=== PATIENT | female | born 1935 | race Caucasian/White ===

== ENCOUNTER 2016-11-15 11:33 | Emergency (ER) | payer OTHER ==
[~2016-11-15] VITALS: Ht 149.9 cm; Wt 63.1 kg
[~2016-11-15 11:33] MED LIST: AMLO5TAB2 PO; AZIT250T PO; BUDE10.22 INH; CARV6.252 PO; DULO30CA2 PO; DULO60CA7 PO; FERR324T18 PO; FLUT16SP NAS; FURO-93 PO; LEVO750T26 PO; LISI-167 PO; LISI40TA PO; METO25TA35 PO; OLOP5DRO EACHEYE; POTA10TA11 PO; POTA10TA5 PO; PRED20TA PO; TIOT18CA INH; TRAM50TA2 PO; TROL85CR TP
[2016-11-15] MEDS ORDERED: MORPHINE SULFATE 4 MG/ML, 1ML ONE (12:56)
[2016-11-15] MEDS ORDERED: ONDANSETRON 2MG/ML, 2ML ONE (12:56)
[2016-11-15] MEDS ORDERED: MORPHINE SULFATE 4 MG/ML, 1ML IVPush PRN (13:00)
[2016-11-15] MEDS ORDERED: SODIUM CHLORIDE FLUSH 10ML SYR IVF ONE (13:00)
[2016-11-15] MEDS ORDERED: ONDANSETRON 2MG/ML, 2ML IVPush ONE (13:00)
[2016-11-15 13:04] LABS: HEMOGLOBIN 11.4 g/dL (11.7-16.4)
[2016-11-15 13:09] LABS: ASPARTATE AMINO TRANSFERASE 13 U/L (15-37); BLOOD UREA NITROGEN 18 mg/dL (7-18)
[2016-11-15 14:26] VITALS: BP 121/63
== END 2016-11-15 14:42 | disposition home or self-care (01) ==
LOC: ED 14:30
DX: M13.131 Monoarthritis, not elsewhere classified, right wrist (principal); L03.113 Cellulitis of right upper limb; J44.9 Chronic obstructive pulmonary disease, unspecified; I11.0 Hypertensive heart disease with heart failure; I50.9 Heart failure, unspecified; Z86.73 Personal history of transient ischemic attack (TIA), and cerebral infarction without residual deficits; I25.2 Old myocardial infarction
CPT/HCPCS: 36415; 73110; 80053; 83690; 84550; 85025; 85610; 85730; 96374; 96375; 99285; J2405

== ENCOUNTER 2017-01-25 13:57 | Inpatient (IN) | payer OTHER ==
[~2017-01-25] VITALS: Ht 149.9 cm; Wt 63.2 kg
[2017-01-25] MEDS ORDERED: SODIUM CHLORIDE FLUSH 10ML SYR IVF ONE (14:30)
[2017-01-25] MEDS ORDERED: LABETALOL 5MG/ML, 20ML IVPush ONE (14:30)
[2017-01-25] MEDS ORDERED: MORPHINE SULFATE 4 MG/ML, 1ML IVPush PRN (14:30)
[2017-01-25] MEDS ORDERED: NITROGLYCERIN OINT 2%, 1GM TP ONE ×2 (14:30→14:52)
[2017-01-25 14:51] LABS: ASPARTATE AMINO TRANSFERASE 24 U/L (15-37); BLOOD UREA NITROGEN 29 mg/dL (7-18)
[2017-01-25] MEDS ORDERED: MORPHINE SULFATE 4 MG/ML, 1ML ONE (14:52)
[2017-01-25] MEDS ORDERED: LABETALOL 5MG/ML, 20ML ONE (14:53)
[2017-01-25 14:58] LABS: IS PT STATUS REG ER OR PRE ER? YES
[2017-01-25] MEDS ORDERED: METO25TA91 PO (16:27)
[2017-01-25] MEDS ORDERED: AMLO5TAB2 PO (16:27)
[2017-01-25] MEDS ORDERED: COLC0.6T37 PO (16:27)
[2017-01-25] MEDS ORDERED: LABETALOL 5MG/ML 40ML VIAL IVPush PRN (17:30)
[2017-01-25] MEDS ORDERED: ENALAPRILAT 1.25 MG/ML, 2ML IVPush PRN (17:30)
[2017-01-25] MEDS ORDERED: ONDANSETRON ODT 4 MG PO PRN (17:30)
[2017-01-25] MEDS ORDERED: HYDROcodone/APAP 5/325 TABLET PO PRN (17:30)
[2017-01-25] MEDS ORDERED: hydrALAzine 20 MG/ML, 1ML IVPush PRN (17:30)
[2017-01-25] MEDS ORDERED: DOCUSATE 100 MG CAPSULE PO PRN (17:30)
[2017-01-25] MEDS ORDERED: NITROGLYCERIN 0.4 MG BOTTLE (25 TABS) SL PRN (17:30)
[2017-01-25 17:46] VITALS: BP 181/109
[2017-01-25] MEDS ORDERED: COLCHICINE 0.6 MG TABLET PO PRN (18:00)
[2017-01-25 18:32] VITALS: BP 178/80
[2017-01-25 18:52] LABS: IS PT STATUS REG ER OR PRE ER? NO
[2017-01-25 19:44] VITALS: BP 165/76
[2017-01-25] MEDS: ACETAMINOPHEN 325 MG TABLET PO PRN (19:49)
[2017-01-25] MEDS: HEPARIN 5,000 UNITS/ML, 1ML SQ SCH (19:50)
[2017-01-25] MEDS ORDERED: CARVEDILOL 6.25 MG TABLET PO SCH (21:00)
[2017-01-25] MEDS ORDERED: FERROUS GLUCONATE 324 MG TABLET PO SCH (21:00)
[2017-01-25] MEDS ORDERED: SODIUM CHLORIDE FLUSH 10ML SYR IVF PRN (21:00)
[2017-01-25 23:52] LABS: IS PT STATUS REG ER OR PRE ER? NO
[2017-01-26] VITALS (7 sets, daily range): BP systolic 112–180; BP diastolic 68–90
[2017-01-26] MEDS: HEPARIN 5,000 UNITS/ML, 1ML SQ SCH ×3 (04:04→21:56)
[2017-01-26] MEDS: ACETAMINOPHEN 325 MG TABLET PO PRN ×3 (04:37→18:11)
[2017-01-26 05:03] LABS: BLOOD UREA NITROGEN 27 mg/dL (7-18)
[2017-01-26] MEDS: DULOXETINE 30 MG CAPSULE.DR PO SCH (08:14)
[2017-01-26] MEDS: AMLODIPINE 5 MG TABLET PO SCH (08:14)
[2017-01-26] MEDS: CARVEDILOL 6.25 MG TABLET PO SCH ×2 (08:15→18:08)
[2017-01-26] MEDS ORDERED: POTASSIUM CHLORIDE 10 MEQ TABLET.ER PO SCH (09:00)
[2017-01-26] MEDS ORDERED: METOPROLOL SUCCINATE 25 MG TAB.ER.24H PO SCH (09:00)
[2017-01-27 01:03] VITALS: BP 120/65
[2017-01-27] MEDS: CARVEDILOL 6.25 MG TABLET PO SCH ×2 (04:52→16:59)
[2017-01-27] MEDS: HEPARIN 5,000 UNITS/ML, 1ML SQ SCH ×3 (04:54→20:50)
[2017-01-27 04:59] VITALS: BP 113/69
[2017-01-27 07:45] VITALS: BP 115/58
[2017-01-27] MEDS ORDERED: POLYETHYLENE GLYCOL 17 GM PACKET PO PRN (08:00)
[2017-01-27] MEDS: LISINOPRIL 10 MG TABLET PO SCH (08:37)
[2017-01-27] MEDS: AMLODIPINE 5 MG TABLET PO SCH (08:37)
[2017-01-27] MEDS: DULOXETINE 30 MG CAPSULE.DR PO SCH (08:37)
[2017-01-27 13:40] VITALS: BP 121/70
[2017-01-27 19:47] VITALS: BP 95/61
[2017-01-28 01:36] VITALS: BP 132/77
[2017-01-28 05:01] VITALS: BP 119/63
[2017-01-28] MEDS: HEPARIN 5,000 UNITS/ML, 1ML SQ SCH ×2 (05:06→12:35)
[2017-01-28] MEDS: CARVEDILOL 6.25 MG TABLET PO SCH (05:06)
[2017-01-28 06:48] VITALS: BP 134/69
[2017-01-28] MEDS: LISINOPRIL 10 MG TABLET PO SCH (08:25)
[2017-01-28] MEDS: DULOXETINE 30 MG CAPSULE.DR PO SCH (08:25)
[2017-01-28] MEDS: AMLODIPINE 5 MG TABLET PO SCH (08:26)
[2017-01-28] MEDS ORDERED: LISI-167 PO (14:05)
== END 2017-01-28 14:20 | disposition home health service (06) | DRG 683 ==
LOC: ED 15:44 → EDIP 15:45 → INTOOBSV 15:45 → ED 16:07 → 4WST 17:16 → OBSVTOIN 01-26 15:02 → DCLOUNGE 01-28 13:39
PROVIDERS: ADMIT Family Medicine; ATTEND Family Medicine
DX: N17.8 Other acute kidney failure (principal); I50.22 Chronic systolic (congestive) heart failure; I16.9 Hypertensive crisis, unspecified; I16.1 Hypertensive emergency; I13.0 Hypertensive heart and chronic kidney disease with heart failure and stage 1 through stage 4 chronic kidney disease, or unspecified chronic kidney disease; I16.0 Hypertensive urgency; J44.9 Chronic obstructive pulmonary disease, unspecified; R51 Headache; N18.9 Chronic kidney disease, unspecified; M19.90 Unspecified osteoarthritis, unspecified site; I25.10 Atherosclerotic heart disease of native coronary artery without angina pectoris; F09 Unspecified mental disorder due to known physiological condition; I25.2 Old myocardial infarction; Z86.718 Personal history of other venous thrombosis and embolism; Z86.73 Personal history of transient ischemic attack (TIA), and cerebral infarction without residual deficits; Z91.14 Patient's other noncompliance with medication regimen; Z90.710 Acquired absence of both cervix and uterus; Z90.49 Acquired absence of other specified parts of digestive tract; Z90.722 Acquired absence of ovaries, bilateral; Z82.49 Family history of ischemic heart disease and other diseases of the circulatory system
CPT/HCPCS: 36415; 70450; 71010; 80048; 80053; 83735; 84100; 84436; 84443; 84484; 85025; 85610; 85730; 93005; 96374; 96375; G0378; J1644; Q0162; 92523-GN; J0360

== ENCOUNTER 2017-04-19 11:13 | Emergency (ER) | payer OTHER ==
[~2017-04-19] VITALS: Ht 149.9 cm; Wt 69.0 kg
[~2017-04-19 11:13] MED LIST changes: +COLC0.6T37 PO; +METO25TA91 PO
[2017-04-19] MEDS ORDERED: ACETAMINOPHEN 325 MG TABLET ONE (11:45)
[2017-04-19] MEDS ORDERED: ACETAMINOPHEN 325 MG TABLET PO ONE (12:00)
[2017-04-19 12:06] LABS: HEMATOCRIT 40.4 % (34.6-47.8); HEMOGLOBIN 13.4 g/dL (11.7-16.4); WHITE BLOOD COUNT 5.8 x10^3/uL (3.4-10)
[2017-04-19 12:18] LABS: BLOOD UREA NITROGEN 20 mg/dL (7-18)
[2017-04-19 13:38] VITALS: BP 167/82
== END 2017-04-19 14:16 | disposition home or self-care (01) ==
LOC: ED 11:51
DX: I10 Essential (primary) hypertension (principal); R51 Headache; I11.0 Hypertensive heart disease with heart failure; J44.9 Chronic obstructive pulmonary disease, unspecified; J96.90 Respiratory failure, unspecified, unspecified whether with hypoxia or hypercapnia; Z90.49 Acquired absence of other specified parts of digestive tract; Z90.710 Acquired absence of both cervix and uterus
CPT/HCPCS: 36415; 70450; 80048; 82040; 85025; 93005; 99285

== ENCOUNTER 2017-08-06 20:33 | Inpatient (IN) | payer MEDICARE, OTHER ==
[~2017-08-06] VITALS: Ht 170.2 cm; Wt 71.2 kg
[2017-08-06] MEDS ORDERED: PLEASE ENTER HEIGHT AND WEIGHT MC SCH (21:00)
[2017-08-06] MEDS ORDERED: CARV3.1212 PO (21:00)
[2017-08-06] MEDS ORDERED: SODIUM CHLORIDE FLUSH 10ML SYR IVF ONE (21:00)
[2017-08-06] MEDS ORDERED: SODIUM CHLORIDE 0.9% 1,000ML IVBOLUS ONE ×2 (21:00→23:00)
[2017-08-06 21:06] LABS: BASOPHILS % (AUTO) 0 % (0-1); EOSINOPHILS % (AUTO) 0 % (1-7); LYMPHOCYTES # (AUTO) 0.63 x10^3/uL (1-3.4); LYMPHOCYTES % (AUTO) 5 % (22-44); MD NO; MEAN CORPUSCULAR HEMOGLOBIN 32.2 pg (27.0-34.8); MEAN CORPUSCULAR HGB CONC 32.7 g/dL (32.4-35.8); MEAN CORPUSCULAR VOLUME 98.7 fL (80-100); MEAN PLATELET VOLUME 9.1 fL (7.4-10.4); MONOCYTES # (AUTO) 0.17 x10^3/uL (0.2-0.8); MONOCYTES % (AUTO) 1 % (2-9); NEUTROPHILS # (AUTO) 12.62 x10^3/uL (1.8-6.8); NEUTROPHILS % (AUTO) 94 % (42-75); PLATELET COUNT 276 x10^3/uL (130-400); RED BLOOD COUNT 5.15 x10^6/uL (3.82-5.3); RED CELL DISTRIBUTION WIDTH 14.8 % (9.6-15.2)
[2017-08-06 21:15] LABS: INTERNATIONAL NORMALIZED RATIO 0.98 (0.93-1.1); PROTHROMBIN TIME 10.2 Seconds (9.6-11.5)
[2017-08-06 21:16] LABS: ALBUMIN 4.2 g/dL (3.4-5.0); ANION GAP 14 mmol/L (5-15); CALCIUM 10.4 mg/dL (8.5-10.1); CHLORIDE 109 mmol/L (98-107)
[2017-08-06 21:38] LABS: ALANINE AMINOTRANSFERASE 79 U/L (12-78); ALKALINE PHOSPHATASE 103 U/L (45-117); BILIRUBIN,TOTAL 1.4 mg/dL (0.2-1.0); CREATININE 1.23 mg/dL (0.55-1.02); TOTAL PROTEIN 9.4 g/dL (6.4-8.2)
[2017-08-06 21:54] LABS: CREATINE KINASE, TOTAL 6888 U/L (26-192)
[2017-08-06 22:15] LABS: MICROSCOPIC INDICATED
[2017-08-06 22:29] LABS: CULTURE INDICATED? NO
[2017-08-06] MEDS ORDERED: HEPARIN 25,000 UNITS/500ML PMX 500 ML IV PRN (23:30)
[2017-08-06] MEDS ORDERED: HEPARIN 5,000 UNITS/ML, 1ML IV ONE (23:30)
[2017-08-06] MEDS ORDERED: HEPARIN 25,000 UNITS/500ML PMX 500 ML ONE (23:37)
[2017-08-06] MEDS ORDERED: HEPARIN 5,000 UNITS/ML, 1ML ONE (23:37)
[2017-08-07 01:19] LABS: ANION GAP 10 mmol/L (5-15); CALCIUM 8.8 mg/dL (8.5-10.1); CHLORIDE 117 mmol/L (98-107); CREATININE 1.11 mg/dL (0.55-1.02)
[2017-08-07] MEDS ORDERED: SODIUM CHLORIDE 0.9% 1,000 ML IV SCH (01:38)
[2017-08-07] MEDS ORDERED: morphine SULFATE 10 MG/ML, 1ML IVPush PRN (02:00)
[2017-08-07] MEDS ORDERED: HYDROcodone/APAP 5/325 TABLET PO PRN (02:00)
[2017-08-07] MEDS ORDERED: ONDANSETRON 2MG/ML, 2ML IVPush PRN (02:00)
[2017-08-07] MEDS ORDERED: LABETALOL 5MG/ML, 20ML IVPush PRN (02:00)
[2017-08-07] MEDS ORDERED: ACETAMINOPHEN 325 MG TABLET PO PRN ×2 (02:00→11:30)
[2017-08-07] MEDS ORDERED: NITROGLYCERIN 0.4 MG BOTTLE (25 TABS) SL PRN (02:00)
[2017-08-07] MEDS ORDERED: ONDANSETRON ODT 4 MG PO PRN (02:00)
[2017-08-07] MEDS ORDERED: POLYETHYLENE GLYCOL 17 GM PACKET PO PRN (02:00)
[2017-08-07 04:00] VITALS: BP 148/82
[2017-08-07 04:30] VITALS: BP 148/82
[2017-08-07 05:44] VITALS: BP 148/90
[2017-08-07 06:11] LABS: BASOPHILS # (AUTO) 0.01 x10^3/uL (0-0.1); BASOPHILS % (AUTO) 0 % (0-1); EOSINOPHILS % (AUTO) 0 % (1-7); LYMPHOCYTES % (AUTO) 6 % (22-44); MD NO; MEAN CORPUSCULAR HEMOGLOBIN 32.8 pg (27.0-34.8); MEAN CORPUSCULAR HGB CONC 33.4 g/dL (32.4-35.8); MEAN CORPUSCULAR VOLUME 98.2 fL (80-100); MEAN PLATELET VOLUME 8.6 fL (7.4-10.4); MONOCYTES # (AUTO) 0.65 x10^3/uL (0.2-0.8); MONOCYTES % (AUTO) 6 % (2-9); NEUTROPHILS # (AUTO) 10.54 x10^3/uL (1.8-6.8); NEUTROPHILS % (AUTO) 89 % (42-75); PLATELET COUNT 194 x10^3/uL (130-400); RED BLOOD COUNT 4.49 x10^6/uL (3.82-5.3)
[2017-08-07 06:17] LABS: ANION GAP 8 mmol/L (5-15); CALCIUM 8.3 mg/dL (8.5-10.1); CHLORIDE 119 mmol/L (98-107); CREATININE 1.04 mg/dL (0.55-1.02)
[2017-08-07 06:46] LABS: CREATINE KINASE, TOTAL 7746 U/L (26-192)
[2017-08-07 07:56] VITALS: BP 142/80
[2017-08-07] MEDS ORDERED: PAPAVERINE 30 MG/ML, 2ML ONE (08:08)
[2017-08-07] MEDS ORDERED: HEPARIN 1,000 UNITS/ML, 10ML ONE (08:09)
[2017-08-07] MEDS ORDERED: THROMBIN 20,000 UNIT VIAL TP ONE (08:09)
[2017-08-07] MEDS ORDERED: BACITRACIN 50,000 UNIT ONE (08:09)
[2017-08-07] MEDS ORDERED: FENTANYL PF 250 MCG/5ML ONE (08:16)
[2017-08-07] MEDS ORDERED: METOPROLOL 1 MG/ML, 5ML ONE (08:47)
[2017-08-07] MEDS ORDERED: EPINEPHRINE 1 MG/ML, 1ML ONE (08:47)
[2017-08-07] MEDS ORDERED: EPHEDRINE 50 MG/ML, 1ML ONE (08:47)
[2017-08-07] MEDS ORDERED: PHENYLEPHRINE 10 MG/ML ONE (08:47)
[2017-08-07] MEDS: DULOXETINE 30 MG CAPSULE.DR PO SCH (09:00)
[2017-08-07] MEDS: CARVEDILOL 6.25 MG TABLET PO SCH ×2 (09:00→20:58)
[2017-08-07] MEDS: IPRATROPIUM 0.5 MG/2.5 ML INHA HHN SCH ×3 (09:00→21:00)
[2017-08-07] MEDS: AMLODIPINE 5 MG TABLET PO SCH (09:00)
[2017-08-07] MEDS: SENNA/DOCUSATE TABLET PO SCH (09:00)
[2017-08-07] MEDS ORDERED: NOREPINEPHRINE 1 MG/ML, 4ML ONE (09:33)
[2017-08-07] MEDS ORDERED: NEOSTIGMINE 1 MG/ML, 10ML ONE (11:20)
[2017-08-07] MEDS ORDERED: ONDANSETRON 2MG/ML, 2ML ONE (11:20)
[2017-08-07] MEDS ORDERED: PROPOFOL 10 MG/ML, 20ML ONE (11:20)
[2017-08-07] MEDS ORDERED: SUCCINYLCHOLINE 20 MG/ML, 10ML ONE (11:20)
[2017-08-07] MEDS ORDERED: DEXAMETHASONE 4 MG/ML, 1ML ONE (11:20)
[2017-08-07] MEDS ORDERED: GLYCOPYRROLATE 0.2MG/1ML, 5ML ONE (11:20)
[2017-08-07] MEDS ORDERED: CEFAZOLIN 1,000 MG ONE (11:20)
[2017-08-07] MEDS ORDERED: ROCURONIUM 10 MG/ML,10ML ONE (11:20)
[2017-08-07] MEDS ORDERED: ALBUTEROL SULFATE 2.5 MG/3 ML NPPB PRN (11:30)
[2017-08-07] MEDS ORDERED: FENTANYL PF 100 MCG/2ML IV PRN (11:30)
[2017-08-07] MEDS ORDERED: hydrALAzine 20 MG/ML, 1ML IV PRN (11:30)
[2017-08-07] MEDS ORDERED: METOPROLOL 1 MG/ML, 5ML IV PRN (11:30)
[2017-08-07] MEDS ORDERED: HALOPERIDOL 5 MG/ML IV ONE (11:30)
[2017-08-07] MEDS ORDERED: PROMETHAZINE 25 MG/ML, 1ML IV PRN (11:30)
[2017-08-07] MEDS ORDERED: OXYcodone 5 MG/5 ML ORAL.SOL UDC PO PRN (11:30)
[2017-08-07] MEDS ORDERED: HYDROmorphone 1 MG/ML, 1ML IV PRN (11:30)
[2017-08-07] MEDS ORDERED: VISIPAQUE 270 MG/ML, 50ML BOTTLE ONE (11:55)
[2017-08-07 13:25] LABS: ANION GAP 8 mmol/L (5-15); CALCIUM 7.9 mg/dL (8.5-10.1); CHLORIDE 118 mmol/L (98-107)
[2017-08-07 13:40] LABS: CREATINE KINASE, TOTAL 6254 U/L (26-192); CREATININE 1.01 mg/dL (0.55-1.02)
[2017-08-07] MEDS: D5%-0.45% NACL 1,000 ML IV SCH ×2 (14:15→21:29)
[2017-08-07] MEDS ORDERED: MORPHINE SULFATE 4 MG/ML, 1ML ONE (16:17)
[2017-08-07] MEDS: HEPARIN 5,000 UNITS/ML, 1ML IV PRN (21:03)
[2017-08-07] MEDS: HEPARIN 25,000 UNITS/500ML PMX 500 ML IV PRN (21:05)
[2017-08-08] MEDS: MORPHINE SULFATE 4 MG/ML, 1ML IVPush PRN (00:30)
[2017-08-08] MEDS: IPRATROPIUM 0.5 MG/2.5 ML INHA HHN SCH ×3 (03:00→14:54)
[2017-08-08 04:06] LABS: ANION GAP 7 mmol/L (5-15); CALCIUM 7.3 mg/dL (8.5-10.1); CHLORIDE 113 mmol/L (98-107); CREATININE 0.94 mg/dL (0.55-1.02)
[2017-08-08 04:19] LABS: CREATINE KINASE, TOTAL 3787 U/L (26-192)
[2017-08-08] MEDS: HEPARIN 5,000 UNITS/ML, 1ML IV PRN ×2 (04:51→11:56)
[2017-08-08] MEDS: D5%-0.45% NACL 1,000 ML IV SCH (05:24)
[2017-08-08] MEDS: AMLODIPINE 5 MG TABLET PO SCH (09:00)
[2017-08-08] MEDS: SENNA/DOCUSATE TABLET PO SCH (09:00)
[2017-08-08] MEDS: DULOXETINE 30 MG CAPSULE.DR PO SCH (10:32)
[2017-08-08] MEDS: CARVEDILOL 6.25 MG TABLET PO SCH ×2 (10:32→20:53)
[2017-08-08 11:20] LABS: ANION GAP 9 mmol/L (5-15); CALCIUM 7.3 mg/dL (8.5-10.1); CHLORIDE 112 mmol/L (98-107)
[2017-08-08 11:21] LABS: CREATININE 0.98 mg/dL (0.55-1.02)
[2017-08-08] MEDS ORDERED: D5%-0.45% NACL 1,000 ML IV SCH (13:30)
[2017-08-08] MEDS: MORPHINE SULFATE 4 MG/ML, 1ML IV PRN ×2 (15:10→18:21)
[2017-08-08] MEDS ORDERED: IPRATROPIUM 0.5 MG/2.5 ML INHA ONE (18:16)
[2017-08-08 19:07] LABS: ANION GAP 7 mmol/L (5-15); CALCIUM 7.7 mg/dL (8.5-10.1); CHLORIDE 112 mmol/L (98-107)
[2017-08-08 19:08] LABS: CREATININE 0.94 mg/dL (0.55-1.02)
[2017-08-08] MEDS: IPRATROPIUM 0.5 MG/2.5 ML INHA NPPB SCH (20:28)
[2017-08-09] MEDS: MORPHINE SULFATE 4 MG/ML, 1ML IVPush PRN ×2 (01:04→13:42)
[2017-08-09] MEDS: HEPARIN 25,000 UNITS/500ML PMX 500 ML IV PRN (02:28)
[2017-08-09] MEDS: IPRATROPIUM 0.5 MG/2.5 ML INHA NPPB SCH ×2 (02:50→09:10)
[2017-08-09 03:00] LABS: BASOPHILS # (AUTO) 0.01 x10^3/uL (0-0.1); BASOPHILS % (AUTO) 0 % (0-1); EOSINOPHILS # (AUTO) 0.01 x10^3/uL (0-0.4); EOSINOPHILS % (AUTO) 0 % (1-7); LYMPHOCYTES # (AUTO) 0.65 x10^3/uL (1-3.4); LYMPHOCYTES % (AUTO) 11 % (22-44); MD NO; MEAN CORPUSCULAR HEMOGLOBIN 32.9 pg (27.0-34.8); MEAN CORPUSCULAR VOLUME 99.8 fL (80-100); MEAN PLATELET VOLUME 8.6 fL (7.4-10.4); MONOCYTES # (AUTO) 0.32 x10^3/uL (0.2-0.8); MONOCYTES % (AUTO) 5 % (2-9); NEUTROPHILS # (AUTO) 4.92 x10^3/uL (1.8-6.8); NEUTROPHILS % (AUTO) 83 % (42-75); PLATELET COUNT 137 x10^3/uL (130-400); RED BLOOD COUNT 3.01 x10^6/uL (3.82-5.3); RED CELL DISTRIBUTION WIDTH 15.1 % (9.6-15.2)
[2017-08-09 03:01] LABS: ANION GAP 6 mmol/L (5-15); CALCIUM 7.4 mg/dL (8.5-10.1); CHLORIDE 113 mmol/L (98-107); CREATININE 0.74 mg/dL (0.55-1.02)
[2017-08-09] MEDS ORDERED: HEPARIN 25,000 UNITS/500ML PMX 500 ML IV PRN (04:00)
[2017-08-09] MEDS ORDERED: HEPARIN wt. based STROKE protocol MC PRN (04:00)
[2017-08-09 04:49] VITALS: BP 102/42
[2017-08-09 07:29] LABS: ALBUMIN 2.1 g/dL (3.4-5.0)
[2017-08-09] MEDS ORDERED: MAGNESIUM SULFATE PMX 2GM/50ML 50 ML IV ONE (09:00)
[2017-08-09] MEDS: AMLODIPINE 5 MG TABLET PO SCH (09:00)
[2017-08-09] MEDS: DULOXETINE 30 MG CAPSULE.DR PO SCH (09:00)
[2017-08-09] MEDS: SENNA/DOCUSATE TABLET PO SCH (09:00)
[2017-08-09] MEDS: CARVEDILOL 6.25 MG TABLET PO SCH (09:00)
[2017-08-09] MEDS: SODIUM CHLORIDE 0.9% 1,000 ML IV SCH (18:56)
[2017-08-09 20:00] VITALS: BP 181/92
[2017-08-09] MEDS: morphine SULFATE 10 MG/ML, 1ML IV PRN (20:41)
[2017-08-10] MEDS: morphine SULFATE 10 MG/ML, 1ML IV PRN ×2 (01:49→05:32)
[2017-08-10 02:01] VITALS: BP 185/74
[2017-08-10 02:31] VITALS: BP 154/74
[2017-08-10] MEDS: SODIUM CHLORIDE 0.9% 1,000 ML IV SCH (04:06)
[2017-08-10 08:15] VITALS: BP 138/67
[2017-08-10] MEDS ORDERED: LORazepam INTENSOL 2 MG/ML SL PRN (10:00)
[2017-08-10] MEDS ORDERED: PROCHLORPERAZINE 5 MG/ML, 2ML IVPush PRN (10:00)
[2017-08-10] MEDS ORDERED: morphine SULFATE ORAL.CONC 20 MG/ML SL PRN (10:00)
[2017-08-10] MEDS ORDERED: ATROPINE OPHTH SOLN 1%, 5ML BC PRN (10:00)
[2017-08-10] MEDS ORDERED: SCOPOLAMINE PATCH, 1.5MG PATCH.TD72 TD PRN (10:00)
[2017-08-10] MEDS ORDERED: HYDROmorphone 1 MG/ML, 1ML IVPush PRN (10:00)
[2017-08-10] MEDS: MORPHINE SULFATE 4 MG/ML, 1ML IVPush PRN ×6 (13:24→22:43)
[2017-08-10] MEDS: LORazepam 2 MG/ML, 1ML IVPush PRN ×2 (17:45→23:54)
[2017-08-10] MEDS ORDERED: morphine SULFATE 10 MG/ML, 1ML ONE (22:40)
[2017-08-11] MEDS: LORazepam 2 MG/ML, 1ML IVPush PRN ×4 (05:28→22:37)
[2017-08-11] MEDS: MORPHINE SULFATE 4 MG/ML, 1ML IVPush PRN ×4 (05:28→22:37)
[2017-08-12] MEDS: MORPHINE SULFATE 4 MG/ML, 1ML IVPush PRN ×3 (08:11→19:15)
[2017-08-12] MEDS: LORazepam 2 MG/ML, 1ML IVPush PRN ×3 (08:11→19:15)
[2017-08-12] MEDS: ATROPINE OPHTH SOLN 1%, 2ML BC PRN (20:29)
[2017-08-13] MEDS: ATROPINE OPHTH SOLN 1%, 2ML BC PRN ×4 (06:27→17:14)
[2017-08-13] MEDS: MORPHINE SULFATE 4 MG/ML, 1ML IVPush PRN ×4 (06:27→17:14)
[2017-08-13] MEDS: LORazepam 2 MG/ML, 1ML IVPush PRN ×4 (06:27→17:14)
== END 2017-08-14 00:10 | disposition expired | DRG 252 ==
LOC: ED 08-07 00:43 → EDIP 08-07 01:47 → 5SO 08-07 03:38 → CCU 08-07 12:35 → 3NW 08-09 16:52
PROVIDERS: ADMIT Family Medicine; ATTEND Family Medicine
PROC: 0T9B70Z Drainage of Bladder with Drainage Device, Via Natural or Artificial Opening (ICD-10-PCS; 2017-08-06)
PROC: 03CC3ZZ Extirpation of Matter from Left Radial Artery, Percutaneous Approach (ICD-10-PCS; 2017-08-07)
PROC: 03CA3ZZ Extirpation of Matter from Left Ulnar Artery, Percutaneous Approach (ICD-10-PCS; 2017-08-07)
PROC: 03783DZ Dilation of Left Brachial Artery with Intraluminal Device, Percutaneous Approach (ICD-10-PCS; 2017-08-07)
PROC: 02H633Z Insertion of Infusion Device into Right Atrium, Percutaneous Approach (ICD-10-PCS; 2017-08-07)
PROC: 03C83ZZ Extirpation of Matter from Left Brachial Artery, Percutaneous Approach (ICD-10-PCS; principal; 2017-08-07 08:00)
DX: I70.268 Atherosclerosis of native arteries of extremities with gangrene, other extremity (principal); I63.9 Cerebral infarction, unspecified; G93.40 Encephalopathy, unspecified; N17.9 Acute kidney failure, unspecified; I13.0 Hypertensive heart and chronic kidney disease with heart failure and stage 1 through stage 4 chronic kidney disease, or unspecified chronic kidney disease; I50.20 Unspecified systolic (congestive) heart failure; I69.354 Hemiplegia and hemiparesis following cerebral infarction affecting left non-dominant side; I42.9 Cardiomyopathy, unspecified; M62.82 Rhabdomyolysis; Z51.5 Encounter for palliative care; Z66 Do not resuscitate; J43.9 Emphysema, unspecified; K44.9 Diaphragmatic hernia without obstruction or gangrene; M19.90 Unspecified osteoarthritis, unspecified site; N18.9 Chronic kidney disease, unspecified; I99.8 Other disorder of circulatory system; E86.0 Dehydration; F41.9 Anxiety disorder, unspecified; I25.10 Atherosclerotic heart disease of native coronary artery without angina pectoris; Z86.718 Personal history of other venous thrombosis and embolism; Z87.891 Personal history of nicotine dependence; I25.2 Old myocardial infarction; Z82.49 Family history of ischemic heart disease and other diseases of the circulatory system
CPT/HCPCS: 36415; 70450; 70551; 71045; 75710; 80048; 80053; 81001; 82040; 82550; 82553; 83605; 83735; 84100; 84145; 84484; 85025; 85520; 85610; 85730; 87040; 87081; 93005; 93306; 93880; 93931; 94640; 96374; J0171; J0690; J1100; J1644; J2405; J2704; J2710; J3010; J3490; J7644; Q9966; C1769; C1876; J0330; J2060; J2270; J2370; J2440; J7030